=== PATIENT | female | born 1960 | race Caucasian/White ===

== ENCOUNTER → 2021-07-18 07:34 | Outpatient (CLI) | payer OTHER, SELFPAY ==
--- NOTE | ~2021-07-18 | MR_ITS ---
EXAMINATION: MR knee LT wo con DATE: 07/18/2021 08:21 INDICATION: Left knee pain. TECHNIQUE: Magnetic resonance imaging (MRI) of the left knee was performed without intravenous contra st. Sequences included axial PD-weighted FS FSE, coronal PD-weighted FSE and PD-weighted FS FSE, sagi ttal PD-weighted FSE, and sagittal T2-weighted FS FSE. COMPARISON: None. FINDINGS: Medial compartment: There is a radial tear of posterior horn of medial meniscus. There is shallow partial-thickness carti carroll loss of tibial condyle involving the central and medial articular surface with mild subchondral edema-like marrow signal intensity. There is partial-thickness cartilage loss of femoral condyle, ricky p at the central articular surface. Osteophytes are noted. Lateral compartment: There is a complex tear of anterior horn of lateral meniscus. There is partial-thickness cartilage lo ss of tibial condyle, deep at the posterior articular surface. There is deep partial thickness cartil age loss of femoral condyle involving the central articular surface. Osteophytes are noted. Patellofemoral compartment: There is shallow partial-thickness cartilage loss of patellar medial and lateral facets and median ri dge. There is partial-thickness cartilage loss of trochlea, deep at the central articular surface. Ligaments and tendons: The anterior and posterior cruciate ligaments are normal. There is an 8 mm intraosseous ganglion in t he tibia near the attachment of posterior cruciate ligament. There are changes of prior sprains of me dial collateral ligament and fibular collateral ligament characterized by thickening and increased si gnal intensity proximally. There is mild patellar tendinopathy. There is a near-complete tear of semi membranosus tendon at its distal attachment. Fluid: There is a large knee joint effusion. There is a large ruptured Rasheed's cyst. There is mild superfic ial infrapatellar bursitis. IMPRESSION: 1. Moderate tricompartmental chondrosis. 2. Tears of medial and lateral menisci. 3. Near complete tear of semimembranosus tendon. 4. Large knee joint effusion. 5. Large ruptured Rasheed's cyst. Reviewed, dictated and finalized at location A. [employer]
== END ==
PROVIDERS: PCP Internal Medicine; Visit Provider Physician Assistant Medical
DX: M25.462 Effusion, left knee (principal); M71.22 Synovial cyst of popliteal space [Baker], left knee; S83.282A Other tear of lateral meniscus, current injury, left knee, initial encounter; S83.242A Other tear of medial meniscus, current injury, left knee, initial encounter; X58.XXXA Exposure to other specified factors, initial encounter
CPT/HCPCS: 73721

== ENCOUNTER 2021-09-15 08:00 | Outpatient (CLI) | payer OTHER, SELFPAY ==
--- NOTE | ~2021-09-15 | XR_ITS ---
EXAMINATION: XR knee LT min 4V DATE: 09/15/2021 08:18 INDICATION: Left knee pain. Abnormal MRI. TECHNIQUE: Weight bearing anteroposterior and [place], sunrise, and flexed lateral views of the lef t knee were obtained COMPARISON: None. FINDINGS: Alignment is normal. No fracture. Mild joint space narrowing in the medial compartment greatest on t he [place] projection. Cartilage thickness along the posterior weightbearing medial femoral condyle however appears relatively preserved on the recent prior MRI and this is more likely related to the previous noted medial meniscal tear with meniscal extrusion seen on the prior MRI. Small to moderate- sized left knee joint effusion without layering lipohemarthrosis. Subtle ovoid soft tissue density po sterior to the knee which appears to correspond to the large Rasheed's cyst seen on prior MRI. IMPRESSION: 1. Mild joint space narrowing the medial compartment which may be due to mild osteoarthritis and/or m eniscal extrusion resulting from the previous noted medial meniscal tear. 2. Small to moderate-sized left knee joint effusion and large Rasheed's cyst. Reviewed, dictated and finalized at location A. [employer] IMPRESSION: 1. Mild joint space narrowing the medial compartment which may be due to mild o steoarthritis and/or meniscal extrusion resulting from the previous noted media l meniscal tear. 2. Small to moderate-sized left knee joint effusion and large Rasheed's cyst.
== END 2021-09-15 08:01 | disposition home or self-care (01) ==
PROVIDERS: PCP Internal Medicine; Visit Provider Orthopaedic Surgery
DX: M25.562 Pain in left knee (principal)
CPT/HCPCS: 73564

== ENCOUNTER 2021-11-03 00:15 | Day surgery (SDC) | payer OTHER, SELFPAY ==
[2021-10-23 12:43] VITALS: BMI 27.3
--- NOTE | 2021-10-23 12:44 | PC.NURSE ---
Report to the Outpatient Waiting Room, entrance under the green pavilion located off [facility], at time _1130__ on date _11/03/21__. OR Time: 1330__. - You and your visitor will be asked a series of questions to screen for COVID 19 for your protection. - A mask is required within the hospital. Preoperative COVID Testing Requirements: No COVID Test needed if: (proof is required; if not received patient will have Rapid Test prior to entry) - Patient has received COVID Vaccine at least 14 days prior to procedure date or - Patient has positive COVID test result within last 90 days of surgery date. COVID Test needed if above criteria is not met If not COVID vaccinated a COVID test must be conducted within 72 hours of surgery and patient is asked to isolate self from time of testing until procedure. You will go to the [facility] for your COVID testing. The [facility] site is located at the corner of [address] [facility]. You will only be called if COVID results are positive and your surgeon may reschedule your elective surgery date. Patients may have clear liquids (water, carbonated beverages, clear teas, apple juice) until 3 hours prior to surgery with a maximum of 20 ounces. - No food from midnight until time of surgery - Infants may have breast milk until 4 hours before surgery, formula 6 hours prior to surgery. - Children will be allowed to drink immediately following surgery. If applicable, please bring a bottle or sippy cup to assist with drinking. Juice, water, soda, and popsicles are readily available. For infants on formula, please bring formula the day of surgery. Pacifiers are allowed. Take the following medications with a SIP of water the morning of surgery: __NONE Medications to discontinue per physician _CELEBREX Date to take last dose 10/28/21 Please no make-up, nail faroese, hairspray, perfume, deodorant, or body powder the day of surgery. No jewelry (including any body piercings) or valuables the day of surgery, leave them at home. Please take a shower or bath the night before, or the morning of, surgery with an antibacterial soap. Wear comfortable, loose fitting clothing. Children are encouraged to wear pajamas. - Jewelry must be removed prior to entering the operating room. Rings and piercings that are not removed may be cut off. - The hospital will not accept responsibility for valuables. - Please leave all valuables, including medications, at home the day of surgery. If you are going home after surgery, a licensed fuel oil truck driver must drive you home. - NO public transportation without another adult. - We recommend that an adult stay with you for 24 hours following discharge. - We also recommend that you do not drive, make important decision, drink alcoholic beverages, or take any drugs that were not prescribed by your health care provider for at least 24 hours after your discharge time. For Pediatric surgeries, we recommend two adults accompany the child home (only one inside the building at this time). One visitor will be allowed to accompany the patient into the hospital. Patients visitor will be instructed to remain with patient at all times or leave the building. We will allow the visitor to come back to the postoperative area when patient is ready. Follow any additional instructions given to you from your surgeon. Telephone instructions given to PATIENT and asked if any additional questions and then verbalized understanding. Patient advised to call surgeon office or pre surgery nurse liaison [phone] if any additional questions.
[2021-11-03] VITALS (10 sets, daily range): BP systolic 93–127; BP diastolic 58–76; PULSE 64–89; RESP 12–20; TEMP 36.4; O2SAT 94–100
--- NOTE | 2021-11-03 07:28 | WPDHPUPDATE1 ---
History and Physical Update Update Date/Time: 11/03/21 07:28 History and Physical has been reviewed, including an updated exam of the patient. There are NO changes in the patient's condition. Risks, benefits, and alternatives have been discussed and questions answered. Patient agrees to proceed with procedure.
[2021-11-03] MEDS: CELECOXIB 200 MG CAPSULE PO (12:04)
[2021-11-03] MEDS: ACETAMINOPHEN 500 MG TABLET 1000 MG PO (12:04)
[2021-11-03] MEDS: LACTATED RINGERS 1,000 ML 30 ML IV CONT ×2 (12:30→14:32)
[2021-11-03] MEDS: SCOPOLAMINE 1.5 MG PATCH TRANSDERM (12:50)
--- NOTE | 2021-11-03 12:52 | WPDANESEPPF ---
Anes - Initial Pre Proc Eval Procedure: Operation Date: 11/03/21 13:30 Proposed Procedures p Left Knee Arthroscopy - Bib Sargent MD Date/Time: 11/03/21 12:52 Surgeon: Bib Sargent MD Pre Op Diagnosis: Lt Knee Med & Lateral Meniscus Tear Patient Data Age: 61 Gender: F Height: 1.57 m Weight: 68 kg Allergies Allergy/AdvReac Type Severity Reaction Status Date / Time codeine Allergy Severe HIVES Verified 11/03/21 12:22 Penicillins Allergy Severe HIVES Verified 11/03/21 12:22 propoxyphene Allergy Severe Hives Verified 11/03/21 12:22 prochlorperazine AdvReac Intermediate MADE Verified 11/03/21 12:22 [From Compazine] MOUTH FALL OPEN AND COULDN'T CLOSE IT Home Medications Medication Instructions Recorded Confirmed Type amitriptyline 50 mg tablet 60 mg PO QHS tablet 09/30/21 11/03/21 History amlodipine 5 mg tablet 5 mg PO HS 09/30/21 11/03/21 History celecoxib 200 mg PO DAILY 10/23/21 11/03/21 History Patient hx anesthesia problems: none Family hx anesthesia problems: none Results Review: All pre-operative results and documents have been reviewed as part of the pre-operative evaluation. [facility] Past Medical History Medical History Abdominal pain History of adverse reaction to anesthesia Hypertension Nausea & vomiting Wears glasses Weight gain Surgical History Surgical History History of cholecystectomy Family History Family History Other Arthritis Depression Diabetes mellitus Heart disease Hypertension Social History Social History Smoking packs per day: 0.25 Smoking cigarettes per day: 5.0 Years smoked: 10 Smoking pack-years: 2.50 Smoking status: Former smoker Smoking end date: 08/15/81 Substance use: current Substance use type: marijuana Other substance usage details: little Living arrangements: with family Gender identity (if verbalized by the patient): Female Anes - Eval Final PreProcedure Day of Procedure 11/03/21 12:52 Patient weight: overweight Heart: regular rate and rhythm Lungs: clear to auscultation and normal air movement Airway: Mallampati scale class II Neurological: alert and oriented Last oral intake: >/= 8 hours ASA classification: II Emergent: no Anesthetic plan: proceed Anesthesia type and monitoring: general LMA and standard monitoring Results Review: All pre-operative results and documents have been reviewed as part of the pre-operative evaluation. Informed Consent: The patient's anesthetic plan and its attendant risks and benefits were discussed with the patient/family/POA. Questions were solicited and answers provided to the satisfaction of the patient/family/POA.
[2021-11-03] MEDS: ceFAZolin 2 GM/D5W 50 ML 2 GM/50 ML BAG IVPB (13:12)
[2021-11-03] MEDS: BUPIVACAINE HCL 0.5% PF 30 ML VIAL 10 ML INFILTRATE (13:36)
--- NOTE | 2021-11-03 14:41 | W.PM.PROC2 ---
Procedure Note - Detailed Date of Procedure 11/03/21 Pre-op Diagnosis Lt Knee Med & Lateral Meniscus Tear Post-op Diagnosis Same Procedure Performed LEFT KNEE SCOPE Surgeon Bib Sargent MD Anesthesia General Description of Procedure PATIENT WAS TAKEN TO THE OR. LEFT LEG WAS PREPPED AND DRAPED STERILE. TROCARS WERE PLACED IN THE USUAL FASHION. CAMERA WAS INTRODUCED. THERE WAS CHONDROMALACIA TO THE PATELLA FEMORAL JOINT. THERE WAS A LOT OF SYNOVITIS IN ALL COMPARTMENTS. THE MEDIAL COMPARTMENT SHOWED CHONDROMALACIA TO THE MEDIAL FEMORAL CONDYLE. A SHAVER WAS USED TO PREFORM A CHONDROPLASTY. THERE WAS A COMPLEX MEDIAL MENISCUS TEAR AT THE MENISCAL ROOT. THE TEAR WAS RESECTED WITH A BITER AND A SHAVER DOWN TO A SMOOTH BASE. ABOUT 20% OF THE MENISCUS WAS REMOVED. THE ACL WAS INTACT. THE LATERAL MENISCUS WAS TORN AT THE MID SUBSTANCE WITH A COMPLEX TEAR. THE LAT COMPARTMENT HAD MINIMAL CHONDROMALACIA. CHONDROPLASTY WAS PREFORMED. A SYNOVECTOMY WAS PREFORMED WELL. THE PATELLO FEMORAL JOINT UNDERWENT CHONDROPLASTY. THERE WAS GRADE 3 CHONDROMALACIA IN PART OF THE TROCHLEA AND PART OF THE PATELLA. SYNOVECTOMY WAS PREFORMED IN THE SUPERIOR MEDIAL COMPARTMENT. THE WOUNDS WERE APPROXIMATED WITH 4.0 NYLON. STERILE DRESSING WAS APPLIED. PATIENT WAS EXTUBATED. Estimated Blood Loss -10.0 Complications No immediate complications Condition Stable Disposition PACU
[2021-11-03] MEDS: fentaNYL CITRATE INJ (*CRX) 100 MCG/2 ML VIAL 25 MCG IV PUSH ×8 (15:03→16:02)
[2021-11-03] MEDS: ONDANSETRON HCL ODT 4 MG TABLET PO (17:22)
== END 2021-11-03 17:23 | disposition home or self-care (01) ==
PROVIDERS: PCP Internal Medicine; Visit Provider Orthopaedic Surgery
PROC: (CPT 29870; principal; 2021-11-03 13:30)
DX: S83.232A Complex tear of medial meniscus, current injury, left knee, initial encounter (principal); S83.272A Complex tear of lateral meniscus, current injury, left knee, initial encounter; M94.262 Chondromalacia, left knee; M65.862 Other synovitis and tenosynovitis, left lower leg; X58.XXXA Exposure to other specified factors, initial encounter; I10 Essential (primary) hypertension
CPT/HCPCS: 29880; A9270; J0690; J1100; J2250; J2370; J2405; J2704; J3010; J7120